=== PATIENT | male | born 2000 | race African-American/Black ===

== ENCOUNTER → 2024-07-22 | Outpatient (CLI) | payer OTHER ==
[~2024-07-22] MED LIST: ISOVUE-300 61% 100ML VIAL As Ordered ONE; LIDOCAINE 1% MDV 20ML VIAL As Ordered ONE; methylPREDNISolone SUSP 40MG/ML 1ML VIAL (DEPO MEDROL) As Ordered ONE
== END ==
LOC: M RAD 13:39
PROVIDERS: ATTEND Physician Assistant
DX: M24.151 Other articular cartilage disorders, right hip (principal)
CPT/HCPCS: 20610; 77002; J1010; Q9967